=== PATIENT | male | born 1990 | race African-American/Black ===

== ENCOUNTER 2018-07-29 19:05 | Emergency (ER) | payer OTHER ==
[~2018-07-29] VITALS: Ht 170.2 cm; Wt 81.8 kg
[2018-07-29 19:10] VITALS: BP 133/71; TEMP 98.2
[2018-07-29] MEDS ORDERED: FLEXERIL 1010 MG/TAB PO (19:56)
[2018-07-29 20:14] VITALS: PULSE 71
== END 2018-07-29 20:16 | disposition home or self-care (01) ==
LOC: COL.ER 19:05
DX: M79.622 Pain in left upper arm (principal)
CPT/HCPCS: J1885